=== PATIENT | male | born 1990 | race African-American/Black ===

== ENCOUNTER 2017-05-18 11:47 | Emergency (ER) | payer MEDICAID ==
[~2017-05-18] VITALS: Ht 180.3 cm; Wt 69.4 kg
[2017-05-18 14:33] VITALS: BP 142/71
[2017-05-18] MEDS ORDERED: cefTRIAXone SODIUM 250 MG VL IM ONE (15:15)
[2017-05-18] MEDS ORDERED: AZITHROMYCIN 250 MG TAB PO ONE (15:15)
== END 2017-05-18 15:16 | disposition home or self-care (01) ==
LOC: ER 11:47
DX: G89.29 Other chronic pain (principal); M79.642 Pain in left hand; F17.210 Nicotine dependence, cigarettes, uncomplicated; Z20.2 Contact with and (suspected) exposure to infections with a predominantly sexual mode of transmission; Z76.0 Encounter for issue of repeat prescription
CPT/HCPCS: 96372; 99283; J0696

== ENCOUNTER 2019-07-29 23:23 | Emergency (ER) | payer MEDICAID, OTHER ==
[~2019-07-29] VITALS: Ht 180.3 cm; Wt 70.3 kg
[2019-07-29 23:57] VITALS: BP 119/58
[2019-07-30] MEDS ORDERED: TETANUS-DIPTH-ACEL PERTUSSIS 0.5ML SYRG IM ONE (02:45)
[2019-07-30] MEDS ORDERED: LIDOCAINE 1% HCL (LOCAL ANESTH.) INJ 20ML MDV IJ ONE (02:45)
== END 2019-07-30 04:10 | disposition home or self-care (01) ==
LOC: ER 23:25
DX: S61.411A Laceration without foreign body of right hand, initial encounter (principal); F17.210 Nicotine dependence, cigarettes, uncomplicated; W22.8XXA Striking against or struck by other objects, initial encounter; Y93.89 Activity, other specified; Y99.8 Other external cause status; Y92.89 Other specified places as the place of occurrence of the external cause
CPT/HCPCS: 12002; 73130; 90471; 90715